=== PATIENT | male | born 1985 | race Caucasian/White ===

== ENCOUNTER 2021-11-28 21:22 | Emergency (ER) | payer OTHER ==
[~2021-11-28] VITALS: Ht 177.8 cm; Wt 143.8 kg
[2021-11-28 21:45] VITALS: BP 149/89
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
--- NOTE | 2021-11-28 22:00 | NUR ---
MYRNA ROJO AT BEDSIDE EXAMING PT.
--- NOTE | 2021-11-28 22:01 | NUR ---
PT TAKEN TO BED 9
[2021-11-28] MEDS ORDERED: KETOROLAC 30 MG/ML VIAL IM ONE (22:10)
[2021-11-28] MEDS ORDERED: methocarbamoL 500 MG TAB PO ONE (22:10)
--- NOTE | 2021-11-28 22:15 | NUR ---
PT TAKEN TO CT
--- NOTE | 2021-11-28 22:32 | NUR ---
PT RETURN FROM CT
[2021-11-29] MEDS ORDERED: GABAPENTIN 300 MG CAP PO ONE
[2021-11-29] MEDS ORDERED: LIDOCAINE 5% 1 EA PATCH TP ONE (02:30)
[2021-11-29] MEDS ORDERED: METH-1681 PO (02:48)
[2021-11-29] MEDS ORDERED: IBUP-2213 PO (02:48)
[2021-11-29] MEDS ORDERED: HYDR-5191 PO (02:48)
[2021-11-29] MEDS ORDERED: GABA300C PO (02:48)
[2021-11-29 03:00] VITALS: BP 148/100
--- NOTE | 2021-11-29 03:06 | NUR ---
Patient discharged with v/s stable. Written and verbal after care instructions given and explained. Patient alert, oriented and verbalized understanding of instructions. Ambulatory with steady gait. All questions addressed prior to discharge. ID band removed. Patient advised to follow up with PMD. Rx of NEURONTIN, NORCO (10-325), IBUPROFEN, AND ROBAXIN given. Patient educated on indication of medication including possible reaction and side effects. Opportunity to ask questions provided and answered. VSS, A/OX4, UNLABORED BREATHING, AMBULATORY, AND CALM DEMEANOR.
== END 2021-11-29 03:06 | disposition home or self-care (01) ==
LOC: MED 21:22
DX: S46.912A Strain of unspecified muscle, fascia and tendon at shoulder and upper arm level, left arm, initial encounter (principal); M54.12 Radiculopathy, cervical region; I10 Essential (primary) hypertension; Z79.899 Other long term (current) drug therapy; Z79.1 Long term (current) use of non-steroidal anti-inflammatories (NSAID); Z79.891 Long term (current) use of opiate analgesic; Z88.0 Allergy status to penicillin; Z88.8 Allergy status to other drugs, medicaments and biological substances; Z91.02 Food additives allergy status; X58.XXXA Exposure to other specified factors, initial encounter; Y92.89 Other specified places as the place of occurrence of the external cause; Y93.89 Activity, other specified; Y99.8 Other external cause status
CPT/HCPCS: 72125; 73200; 96372; 99284; J1885